=== PATIENT | female | born 1990 | race Caucasian/White ===

== ENCOUNTER 2016-05-17 08:21 | Emergency (ER) | payer OTHER ==
[2016-05-17] MEDS ORDERED: LACTATED RINGERS 1,000 ML ONE (09:09)
[2016-05-17] MEDS ORDERED: ONDANSETRON 4 MG/2ML 2 ML VIAL ONE (09:09)
[2016-05-17 09:14] LABS: ABSOLUTE NEUTROPHIL COUNT 11.5 K/mm3 (1.8-7.7); BASO # 0.1 K/mm3 (0.0-0.2); BASO % 0.4 % (0.2-1.0); EOS # 0.2 (0.0-0.5); HEMATOCRIT 46.4 % (37.0-47.0); HEMOGLOBIN 15.5 gm/l (12.0-16.0); IMM NEUT # 0.1 K/mm3 (0-0.2); IMM NEUT% 0.3 % (0-1); LYMPH # 1.5 (1.0-4.8); LYMPH % 10.7 % (15-45); MEAN CELL VOLUME 95.9 fl (81.0-99.0); MEAN CORPUSCULAR HGB CONC 33.4 g/dl (33.0-37.0); MEAN PLATELET VOLUME 10.7 fl (7.4-10.4); MONO # 1.1 (0.0-0.8); MONO % 7.6 % (4-12); PLATELET COUNT 248 K/mm3 (130-400); RED CELL DISTRIBUTION WIDTH 12.8 % (11.5-14.5)
[2016-05-17 09:24] LABS: HCG,QUALITATIVE URINE NEGATIVE; URINE BILIRUBIN NEGATIVE (NEGATIVE); URINE BLOOD 1+ (NEGATIVE); URINE GLUCOSE (UA) NEGATIVE (NEGATIVE); URINE LEUKOCYTE ESTERASE NEGATIVE (NEGATIVE); URINE NITRITE NEGATIVE (NEGATIVE); URINE PROTEIN TRACE (NEGATIVE); URINE UROBILINOGEN NORMAL (0-1 mg/dl)
[2016-05-17 09:26] LABS: URINE APPEARANCE CLOUDY; URINE COLOR YELLOW
[2016-05-17 09:33] LABS: ALBUMIN 4.7 gm/dL (3.5-5.7); CALCIUM 10.4 mg/dL (8.6-10.3)
[2016-05-17 09:35] LABS: URINE AMORPHOUS SEDIMENT MANY; URINE BACTERIA NONE SEEN
[2016-05-17] MEDS ORDERED: KETOROLAC TROMETHAMINE 15 MG/ML VIAL ONE (10:11)
[2016-05-17] MEDS ORDERED: ACETAMINOPHEN 500 MG TABLET ONE (10:11)
== END 2016-05-17 10:49 | disposition home or self-care (01) ==
LOC: ED 08:21
DX: G40.909 Epilepsy, unspecified, not intractable, without status epilepticus (principal); R10.84 Generalized abdominal pain; Z79.899 Other long term (current) drug therapy; F17.210 Nicotine dependence, cigarettes, uncomplicated
CPT/HCPCS: 83690; 81025; 85025; 80053; 81001; 96375; 99284; 96374; 99283; J1885; A9270; J2405; J7120

== ENCOUNTER 2016-06-15 07:53 | Emergency (ER) | payer OTHER ==
[2016-06-15] MEDS ORDERED: ONDANSETRON 4 MG/2ML 2 ML VIAL ONE (08:24)
[2016-06-15 08:32] LABS: ABSOLUTE NEUTROPHIL COUNT 10.3 K/mm3 (1.8-7.7); BASO % 0.3 % (0.2-1.0); EOS # 0.1 (0.0-0.5); EOS % 0.6 % (0.9-2.9); HEMATOCRIT 43.2 % (37.0-47.0); HEMOGLOBIN 14.8 gm/l (12.0-16.0); IMM NEUT # 0.1 K/mm3 (0-0.2); IMM NEUT% 0.4 % (0-1); LYMPH # 1.3 (1.0-4.8); LYMPH % 10.1 % (15-45); MEAN CELL VOLUME 94.5 fl (81.0-99.0); MEAN CORPUSCULAR HEMOGLOBIN 32.4 pg (27.0-31.0); MEAN CORPUSCULAR HGB CONC 34.3 g/dl (33.0-37.0); MEAN PLATELET VOLUME 11.2 fl (7.4-10.4); MONO # 0.8 (0.0-0.8); MONO % 6.6 % (4-12); PLATELET COUNT 220 K/mm3 (130-400); RED CELL DISTRIBUTION WIDTH 12.6 % (11.5-14.5)
[2016-06-15 08:45] LABS: ALB/GLOB RATIO 2.1 (>1.0); ALBUMIN 4.6 gm/dL (3.5-5.7); CALCIUM 10.7 mg/dL (8.6-10.3)
[2016-06-15] MEDS ORDERED: IBUPROFEN 200 MG TABLET ONE (09:10)
--- NOTE | 2016-06-15 09:13 | RAD ---
Clinical Indication: Seizure this morning. Fell on right shoulder. Initial encounter. Comparison: None. Findings: Three views of the right shoulder. Bones: No fracture or dislocation. Joints: Unremarkable. Soft tissue: Normal. Limited evaluation of the right hemithorax: Unremarkable. Impression: No fracture or dislocation.
[2016-06-15] MEDS ORDERED: LEVETIRACETAM 500 MG TABLET PO ONE (09:15)
[2016-06-15 09:25] LABS: SPECIFIC GRAVITY 1.025 (1.001-1.030); URINE BILIRUBIN NEGATIVE (NEGATIVE); URINE BLOOD 2+ (NEGATIVE); URINE GLUCOSE (UA) NEGATIVE (NEGATIVE); URINE LEUKOCYTE ESTERASE NEGATIVE (NEGATIVE); URINE NITRITE NEGATIVE (NEGATIVE); URINE PROTEIN 2+ (NEGATIVE); URINE UROBILINOGEN NORMAL (0-1 mg/dl)
[2016-06-15 09:31] LABS: URINE APPEARANCE CLOUDY; URINE COLOR YELLOW
[2016-06-15 09:39] LABS: URINE BACTERIA FEW
== END 2016-06-15 09:28 | disposition home or self-care (01) ==
LOC: ED 07:53
DX: S46.911A Strain of unspecified muscle, fascia and tendon at shoulder and upper arm level, right arm, initial encounter (principal); G40.909 Epilepsy, unspecified, not intractable, without status epilepticus; F17.210 Nicotine dependence, cigarettes, uncomplicated; Z79.899 Other long term (current) drug therapy; W19.XXXA Unspecified fall, initial encounter; Y92.9 Unspecified place or not applicable
CPT/HCPCS: 85025; 80053; 81001; 73030; 99283 ×2; 96374; A9270 ×2; J2405

== ENCOUNTER 2016-08-28 12:15 | Emergency (ER) | payer OTHER ==
[2016-08-28] MEDS ORDERED: LACTATED RINGERS 1,000 ML ONE (12:40)
[2016-08-28 12:44] LABS: ABSOLUTE NEUTROPHIL COUNT 19.3 K/mm3 (1.8-7.7); BASO # 0.1 K/mm3 (0.0-0.2); BASO % 0.3 % (0.2-1.0); EOS # 0.1 (0.0-0.5); EOS % 0.2 % (0.9-2.9); HEMATOCRIT 46.5 % (37.0-47.0); IMM NEUT # 0.2 K/mm3 (0-0.2); IMM NEUT% 0.7 % (0-1); LYMPH # 3.2 (1.0-4.8); LYMPH % 13.2 % (15-45); MEAN CELL VOLUME 100.4 fl (81.0-99.0); MEAN CORPUSCULAR HEMOGLOBIN 32.4 pg (27.0-31.0); MEAN CORPUSCULAR HGB CONC 32.3 g/dl (33.0-37.0); MEAN PLATELET VOLUME 11.6 fl (7.4-10.4); MONO # 1.5 (0.0-0.8); MONO % 6.1 % (4-12); NEUT % 79.5 % (43-75); PLATELET COUNT 257 K/mm3 (130-400); RED CELL DISTRIBUTION WIDTH 12.5 % (11.5-14.5)
[2016-08-28] MEDS ORDERED: LEVETIRACETAM 100 MG/1 ML 5ML VIAL IV ONE (12:57)
[2016-08-28] MEDS ORDERED: SODIUM CHLORIDE 0.9% 100 ML IV ONE (12:58)
[2016-08-28 12:59] LABS: ALB/GLOB RATIO 1.7 (>1.0); ALBUMIN 4.5 gm/dL (3.5-5.7); CALCIUM 10.2 mg/dL (8.6-10.3)
[2016-08-28 13:43] LABS: ATYPICAL LYMPHOCYTE 2 %; BAND 5 % (0-10); BASOPHIL 0 % (0-1); EOSINOPHIL 0 % (1-3); LYMPHOCYTE 7 % (15-45); MONOCYTE 6 % (4-12); NEUTROPHILS 80 % (43-75); PLATELET ESTIMATE NORMAL (NORMAL); TOTAL CELLS COUNTED 100
[2016-08-28 13:44] LABS: HCG,QUALITATIVE URINE NEGATIVE
[2016-08-28 13:48] LABS: URINE BILIRUBIN NEGATIVE (NEGATIVE); URINE BLOOD 3+ (NEGATIVE); URINE GLUCOSE (UA) NEGATIVE (NEGATIVE); URINE LEUKOCYTE ESTERASE NEGATIVE (NEGATIVE); URINE NITRITE NEGATIVE (NEGATIVE); URINE PROTEIN 2+ (NEGATIVE); URINE UROBILINOGEN NORMAL (0-1 mg/dl)
[2016-08-28 13:49] LABS: URINE APPEARANCE HAZY; URINE COLOR YELLOW
[2016-08-28 13:56] LABS: AMPHETAMINES/METHAMPHETAMINES NEGATIVE (NEGATIVE); COCAINE NEGATIVE (NEGATIVE); MARIJUANA POSITIVE (NEGATIVE); METHADONE NEGATIVE (NEGATIVE); OPIATES NEGATIVE (NEGATIVE); TRICYCLIC ANTIDEPRESSANTS NEGATIVE (NEGATIVE)
[2016-08-28 14:04] LABS: URINE BACTERIA 1+; URINE RBC 0 /hpf; URINE WBC NEG /hpf
[2016-08-28] MEDS ORDERED: KETOROLAC TROMETHAMINE 15 MG/ML VIAL ONE (14:04)
[2016-08-28 14:05] LABS: URINE AMORPHOUS SEDIMENT MODERATE URATES
== END 2016-08-28 15:10 | disposition home or self-care (01) ==
LOC: ED 12:15
DX: G40.909 Epilepsy, unspecified, not intractable, without status epilepticus (principal); D72.829 Elevated white blood cell count, unspecified; F17.210 Nicotine dependence, cigarettes, uncomplicated; Z79.899 Other long term (current) drug therapy
CPT/HCPCS: 80299; 81025; 85025; 87040; 87086; 80305; 80053; 81001; 96375; 99284 ×2; 96361; 96365; J1885; J7120; J7050